=== PATIENT | female | born 1985 | race African-American/Black ===

== ENCOUNTER 2020-06-10 23:00 | Emergency (ER) | payer OTHER ==
[~2020-06-10] VITALS: Ht 160 cm; Wt 72.6 kg
[2020-06-11 02:30] VITALS: BP 139/88
== END 2020-06-11 02:30 | disposition home or self-care (01) ==
LOC: ER 23:00
DX: S90.812A Abrasion, left foot, initial encounter (principal); S90.811A Abrasion, right foot, initial encounter; S09.90XA Unspecified injury of head, initial encounter; S49.91XA Unspecified injury of right shoulder and upper arm, initial encounter; Y04.2XXA Assault by strike against or bumped into by another person, initial encounter; Y93.89 Activity, other specified; Y92.89 Other specified places as the place of occurrence of the external cause; Y99.8 Other external cause status